=== PATIENT | female | born 1950 | race Two or more races ===

== ENCOUNTER 2024-07-12 10:46 | Outpatient (RCR) | payer MEDICAID, SELFPAY ==
--- NOTE | 2024-07-12 11:31 | PTNOTE_ITS ---
PT OP Initial Eval Patient Information Outpatient Physical Therapy Treatment Date: 07/12/24 Visit Reasons: right hip surgery Medical Diagnosis: z98.890; Right Hip Pain Treatment Dx #1: Right Hip Pain Treatment Dx #2: Right Hip Mobility Deficits Start of Care: 07/12/24 Date of Onset: 06/06/24 Smoking Status Smoking Status: Never smoker Initial Assessment Subjective: Pt is a 30 y/o female s/p right hip replacement (ant approach) by Dr Hernandez in [place] due to a fall. Pt still has pain 2/10 with activities. Pt has limitation with standing, walking, chores, self care, cooking, cleaning, and performing recreational activities. Pt reports of intermittent dizziness and limited right knee ROM from a knee replacement. Objective: Right Hip AROM Flexion: 90 deg Abduction: 40 deg External Rotation and Internal Rotation: NT Extension: 10 deg Right Hip MMTs: grossly 3-/5 Right Knee AROM: -5 deg to 60 deg with pain Right Knee MMTs: grossly 4-/5 Assessment: Pt demonstrate right hip mobility and strength deficits s/p hip replacement leading to difficulty with ADLs. Pt will benefit from physical therapy to increase ROM, strength, and work on ambulation. Short Term and Residential Goals 1) Increase right hip AROM WFL in 12 wks to be able to perform chores 2) Increase right hip MMTs grossly to 4/5 in 12 wks to be able to walk more than 30 mins 3) Decrease hip to 1/10 in 12 wks to be able to stand more than 30 mins 4) Increase SLS to 15 sec in 12 wks to be able to perform self care activtiies 5) Indep with HEP Treatment Plan 1) Manual Therapy 2) Therapeutic Activities 3) Therapeutic Exercises 4) Modalities (ice, heat) 5) Balance Training 6) Gait Training Frequency and Duration: 2 x wk for 12 wks Certification Dates: 07/12/24 to 10/11/24 Procedure Charges OP PT Eval Mod Complex 30 minutes: Yes
== END 2024-07-17 23:59 | disposition home or self-care (01) ==
LOC: CPTX 10:46
PROVIDERS: PCP Nurse Practitioner Family; Referring Provider Nurse Practitioner Family; Visit Provider Nurse Practitioner Family
DX: M25.551 Pain in right hip (principal); R26.2 Difficulty in walking, not elsewhere classified; R42 Dizziness and giddiness; Z96.641 Presence of right artificial hip joint
CPT/HCPCS: 97162

== ENCOUNTER 2024-08-16 13:00 | Outpatient (RCR) | payer MEDICAID, SELFPAY ==
--- NOTE | 2024-07-19 14:28 | PT.ODAYNRPT ---
PT Outpatient Daily Note OP Daily Note Outpatient Physical Therapy Treatment Date: 07/19/24 Visit Reasons: Rt hip surgery Subjective: Pt brought in by daughter. Objective: Please see flow sheet for ther ex list. Assessment: Instructed pt on hip AAROM exercises but limited due to hx of R knee TKA and limited mobility. Plan: Continue with pOC. Length of Time (minutes) of Treatment: 30 Minutes Procedure Charges Therapeutic Exercise 30 minutes: Yes
--- NOTE | 2024-07-23 13:11 | PT.ODAYNRPT ---
PT Outpatient Daily Note OP Daily Note Outpatient Physical Therapy Treatment Date: 07/23/24 Visit Reasons: Rt hip surgery Subjective: No new complaints. Objective: Please see flow sheet for ther ex list. Assessment: Added interventions completed with minimal pain. Plan: Continue with POC. Length of Time (minutes) of Treatment: 30 Minutes Procedure Charges Therapeutic Exercise 30 minutes: Yes
--- NOTE | 2024-07-26 14:22 | PT.ODAYNRPT ---
PT Outpatient Daily Note OP Daily Note Outpatient Physical Therapy Treatment Date: 07/26/24 Visit Reasons: Rt hip surgery Subjective: Pt's hip feels better. Pt wants to practice walking with a cane. Objective: Please see flow chart for list of ther ex performed Assessment: practice gait with cane and in PB; cues to correct cane transition to step through with opposite limb. Plan: Continue with PT Length of Time (minutes) of Treatment: 30 Minutes Procedure Charges Therapeutic Exercise 30 minutes: Yes
--- NOTE | 2024-07-31 09:32 | PT.ODAYNRPT ---
PT Outpatient Daily Note OP Daily Note Outpatient Physical Therapy Treatment Date: 07/31/24 Visit Reasons: Rt hip surgery Subjective: Pt's hip is sore and continues to walk a little more at home without her walker. Pt does not own a cane but will purchase one soon. Objective: Please see flow chart for list of ther ex performed Assessment: practice gait today using cane. Pt demonstrate safely and advised to transtion from FWW to cane when she's able to purchase a cane. Pt continues to progress with closed chain exercises Plan: Continue with PT Length of Time (minutes) of Treatment: 30 Minutes Procedure Charges Therapeutic Exercise 30 minutes: Yes
--- NOTE | 2024-08-02 15:06 | PT.ODAYNRPT ---
PT Outpatient Daily Note OP Daily Note Outpatient Physical Therapy Treatment Date: 08/02/24 Visit Reasons: Rt hip surgery Subjective: Pt reports she just got her cane yesterday, will bring it in next time to adjust it. Objective: Please see flow sheet for ther ex list. Assessment: Pt demonstrates improved gait pattern after a few ft with verbal cues to work on heel strike and stride length during Gt with SPC. Plan: Continue with POC. Length of Time (minutes) of Treatment: 30 Minutes
--- NOTE | 2024-08-06 16:12 | PT.ODAYNRPT ---
PT Outpatient Daily Note OP Daily Note Outpatient Physical Therapy Treatment Date: 08/06/24 Visit Reasons: Rt hip surgery Subjective: Pt reports hip is feeling better. Objective: Please see flow sheet for ther ex list. Assessment: Pt brought in SPC adjusted to appropriate height. Worked on GT in gym floor, pt uses SPC with no LOB. Plan: Continue with POC. Length of Time (minutes) of Treatment: 30 Minutes Procedure Charges Therapeutic Exercise 30 minutes: Yes
--- NOTE | 2024-08-09 13:26 | PT.ODAYNRPT ---
PT Outpatient Daily Note OP Daily Note Outpatient Physical Therapy Treatment Date: 08/09/24 Visit Reasons: Rt hip surgery Subjective: Pt reports hip has been sore lately but has left the walker and is has been using SPC for a few days now. Objective: Please see flow sheet for ther ex list. Assessment: Pt demonstrates improved tolerance with closed chain interventions indicating progress. Plan: Continue with POC. Length of Time (minutes) of Treatment: 30 Minutes Procedure Charges Therapeutic Exercise 30 minutes: Yes
--- NOTE | 2024-08-14 14:54 | PT.ODAYNRPT ---
PT Outpatient Daily Note OP Daily Note Outpatient Physical Therapy Treatment Date: 08/14/24 Visit Reasons: Rt hip surgery Subjective: Pt reports R hip is doing better but is still limited with her ADLs due to L knee. Pt has a history of L knee TKA and poor knee flexion. Objective: Please see flow sheet for ther ex list Assessment: Pt presents with decrease hip pain indicating progress. Plan: Continue with POc. Length of Time (minutes) of Treatment: 30 Minutes Procedure Charges Therapeutic Exercise 30 minutes: Yes
--- NOTE | 2024-08-16 13:34 | PT.ODAYNRPT ---
PT Outpatient Daily Note OP Daily Note Outpatient Physical Therapy Treatment Date: 08/16/24 Visit Reasons: Rt hip surgery Subjective: Pt reports hip is doing well, continues to use SPC. Objective: Please see flow sheet for ther ex list. Assessment: Focus on restoring strength of R hip, gait impairment present due to hx of R TKA. Plan: Continue with POC, pt has 4 PT visits remaining. Length of Time (minutes) of Treatment: 30 Minutes Procedure Charges Therapeutic Exercise 30 minutes: Yes
== END 2024-08-17 23:59 | disposition home or self-care (01) ==
LOC: CPTX 13:00
PROVIDERS: PCP Nurse Practitioner Family; Referring Provider Nurse Practitioner Family; Visit Provider Nurse Practitioner Family
DX: M25.551 Pain in right hip (principal); R26.2 Difficulty in walking, not elsewhere classified; Z96.641 Presence of right artificial hip joint
CPT/HCPCS: 97110

== ENCOUNTER 2024-09-09 11:30 | Outpatient (RCR) | payer MEDICAID, SELFPAY ==
--- NOTE | 2024-08-23 15:32 | PT.ODAYNRPT ---
PT Outpatient Daily Note OP Daily Note Outpatient Physical Therapy Treatment Date: 08/23/24 Visit Reasons: right hip surgery Subjective: Pt reports the last time she seen her surgeon he cleared her, said she can resume her normal activities. Pt asking when she can stop using SPC. Objective: Please see flow sheet for ther ex list. Assessment: Pt demonstrates poor step height due to poor ROM in R knee, recommended pt to continue use of cane. Plan: Continue with pOC. Length of Time (minutes) of Treatment: 30 Minutes Procedure Charges Therapeutic Exercise 30 minutes: Yes
--- NOTE | 2024-08-27 13:36 | PTNOTE_ITS ---
PT Outpatient Daily Note OP Daily Note Outpatient Physical Therapy Treatment Date: 08/27/24 Visit Reasons: right hip surgery Subjective: Pt reports R hip is doing ok, still has pain occasionally especially when sleeping. Objective: Please see flow sheet for ther ex list. Assessment: Pt instructed on golfers lift with single PRODUCTION PROOFREADER to balance. Pt demonstrates poor knee flexion on R LE limiting ability to perform squat to pear picker objects from ground level, pt compensated with increase lumbar flexion. Plan: Continue with poC. Length of Time (minutes) of Treatment: 30 Minutes Procedure Charges Therapeutic Exercise 30 minutes: Yes
--- NOTE | 2024-08-29 13:54 | PT.ODS1RPT ---
PT OP Progress/Discharge Note Date of Service: 08/29/24 Progress Note/DC Note Progress Note/Discharge Note: Progress Note Patient Information Visit Reasons: right hip surgery Medical Diagnosis: z98.890; Right Hip Pain Treatment Dx #1: Right Hip Mobility Deficits Treatment Dx #2: Abnormal Gait Service Continue Service or Discharge: Continue Service Certification Date Certification Dates: 08/29/24 to 11/29/24 Status Subjective: Pt's hip feels much better. Pt does not have a follow up appt with surgeon or PCP. Pt has been able to stand, walk, perform light chores with less limitation. Pt still has difficulty with balance, prolonged activity, and performing recreational activities. Objective: Right Hip AROM Flexion: 95 deg Abduction: 45 deg External and Internal Rotation: NT Extension: 15 deg Right Hip MMTs: grossly 3+/5 Right Knee AROM: -5 deg to 60 deg Right Knee MMTs: grossly 4-/5 Sit-Stand Test: 4 reps Tu sec Assessment: Pt demonstrate improved right hip mobility and strength allowing her to walk, stand, perform chores with less limitation. Pt has transition to single point cane safely in the past weeks. Pt still exhibit decrease BLE endurance and balance where she will need further physical therapy to improve impairments. Pt will benefit from additional physical therapy sessions to increase strength, mobility, and work on balance; thank you for your referrals. Plan: Continue with PT/POC and add 12 sessions (2 x wk for 6 wks) Procedure Charges Therapeutic Exercise 30 minutes: Yes
--- NOTE | 2024-09-09 13:02 | PT.ODAYNRPT ---
PT Outpatient Daily Note OP Daily Note Outpatient Physical Therapy Treatment Date: 09/09/24 Visit Reasons: right hip surgery Subjective: Pt reports feeling progress with PT but still has occasional pain on the hip. Objective: Please see flow sheet for ther ex list. Assessment: Pt demonstrates decrease stance phase on R LE during gait but pt also has old TKA and stiff knee likely causing gait deviation. Plan: Waiting on additional authorization for pt to continue with PT. Length of Time (minutes) of Treatment: 30 Minutes Procedure Charges Therapeutic Exercise 30 minutes: Yes
== END 2024-09-16 23:59 | disposition home or self-care (01) ==
LOC: CPTX 11:30
PROVIDERS: PCP Nurse Practitioner Family; Referring Provider Nurse Practitioner Family; Visit Provider Nurse Practitioner Family
DX: M25.551 Pain in right hip (principal); R26.2 Difficulty in walking, not elsewhere classified; Z96.641 Presence of right artificial hip joint
CPT/HCPCS: 97110

== ENCOUNTER → 2024-12-30 | Outpatient (CLI) | payer MEDICAID, SELFPAY ==
--- NOTE | 2024-12-30 13:20 | XR_ITS ---
Examination: Bone densitometry Date and time of exam: December 30, 2024, 1328 hours INDICATIONS: Hysterectomy age 50, history right hip surgery Technique: Lumbar spine and hip total bone mineralization values of an calculated. Peak reference and age match control results have been displayed. Findings: Lumbar spine total bone mineralization is 0.872 gm/cm2. This is 1.6 standard deviations below peak reference. This is 0.9 standard deviations above age-matched controls. Hip total bone mineralization is 0.760 gm/cm2 This is 1.5 standard deviations below peak reference. This is 0.4 standard deviations above age-matched controls Impression: There is osteopenia based on lumbar spine measurements. There is osteopenia based on hip measurements Lumbar mineralization is increased 1.5% compared with February 23, 2018 Hip mineralization is increased 11.7% compared with February 23, 2018
== END | disposition home or self-care (01) ==
PROVIDERS: Referring Provider Nurse Practitioner Family; Visit Provider Nurse Practitioner Family
DX: Z13.820 Encounter for screening for osteoporosis (principal); M85.89 Other specified disorders of bone density and structure, multiple sites
CPT/HCPCS: 77080

== ENCOUNTER → 2025-01-06 | Outpatient (CLI) | payer MEDICAID, SELFPAY ==
--- NOTE | 2025-01-06 13:45 | XR_ITS ---
Examination: Screening digital mammography, bilateral Computer aided detection 3-D breast Tomosynthesis, bilateral Date and time of exam: January 06, 2025, 1406 hours, compared to mammograms dating to January 01, 2018 Indication: Screening Technique: Nonmagnified MLO, CC views of the breasts to been obtained, reconstructed from 3-D Tomosynthesis images. R2 computer aided detection program utilized for evaluation of suspicious masses and/or abnormal calcifications. 3-D Tomosynthesis images obtained. Findings: Scattered areas of fibroglandular density There appear to be more numerous microcalcifications retroareolar region left breast separate from the breast biopsy marker No definite suspicious masses Impression: BI-RADS Category 0: Incomplete: Need additional imaging evaluation Recommend magnification spot compression films of more numerous microcalcifications retroareolar region left breast as well as left breast sonography to complete the work-up
== END | disposition home or self-care (01) ==
LOC: CDIM 13:46
PROVIDERS: PCP Nurse Practitioner Family; Referring Provider Nurse Practitioner Family; Visit Provider Nurse Practitioner Family
DX: Z12.31 Encounter for screening mammogram for malignant neoplasm of breast (principal); R92.0 Mammographic microcalcification found on diagnostic imaging of breast; R92.8 Other abnormal and inconclusive findings on diagnostic imaging of breast
CPT/HCPCS: 77063; 77067